=== PATIENT | male | born 1935 | race Caucasian/White ===

== ENCOUNTER → 2025-01-25 | Outpatient (CLI) | payer MEDICARE, SELFPAY ==
[2025-01-25 15:11] LABS: Hematocrit 35.2 % (40-54); Hemoglobin 12.4 g/dL (13.0-16.5); Mean Corp Hgb Conc 35.2 g/dL (32-36); Mean Corpuscular Hgb 31.1 pg (27.0-32.0); Mean Corpuscular Volume 88.2 fL (80-94); Mean Platelet Vol. 10.4 fl (6.2-12.0); Platelet Count 193 K/mm3 (150-450); RBC Distribution Width CV 14.4 % (11.6-14.6); RBC Distribution Width SD 46.5 fl (35.1-43.9); Red Blood Count 3.99 M/mm3 (4.6-6.2); White Blood Count 5.3 K/mm3 (4.4-11.0)
[2025-01-25 18:15] LABS: ALB/GLOB Ratio 1.5 RATIO (0.9-2.4); AST(SGOT) 15 U/L (<=37); Alanine Aminotransfer ALT/SGPT 13 U/L (<=46); Albumin, Serum 4.2 g/dL (3.4-4.8); Alkaline Phosphatase 79 U/L (40-129); Anion Gap 13 (5-15); BUN 46 mg/dL (4-19); BUN/Creat Ratio 22.1 RATIO (10-20); Calcium,Total 9.8 mg/dL (7.6-11.0); Carbon Dioxide 23.4 mmol/L (21.0-32.0); Chloride 101 mmol/L (98-108); Creatinine, Serum 2.06 mg/dL (0.70-1.20); EST Glomerular Filtration Rate 30 (>60); Globulin 2.7 g/dL (2.2-4.2); Glucose 171 mg/dL (70-99); Potassium 4.4 mmol/L (3.3-5.1); Protein, Total 6.9 g/dL (5.9-8.4); Sodium Level 137 mmol/L (133-145); Total Bilirubin 0.48 mg/dL (0.00-1.30); Vitamin B12 737 pg/mL (180-914)
[2025-02-01 14:08] LABS: Folate, RBC (Hct) Test 36.9 % (37.5-51.0); Folates, RBC Test 1642 ng/mL (>498); Free Kappa Light Chains 37.4 mg/L (3.3-19.4); Free Lambda Light Chains 28.9 mg/L (5.7-26.3)
== END | disposition home or self-care (01) ==
LOC: MTLAB 13:00
PROVIDERS: PCP Nurse Practitioner Family; Referring Provider Psychiatry & Neurology Neurology; Visit Provider Psychiatry & Neurology Neurology
DX: F03.90 Unspecified dementia, unspecified severity, without behavioral disturbance, psychotic disturbance, mood disturbance, and anxiety (principal); G62.9 Polyneuropathy, unspecified
CPT/HCPCS: 36415; 80053; 82607; 82747; 83883; 84425; 84443; 85014; 85027

== ENCOUNTER → 2025-05-24 | Outpatient (CLI) | payer MEDICARE, SELFPAY ==
[2025-05-24 16:00] LABS: Ferritin 558 ng/mL (37-417); Iron 74 ug/dL (65-175)
[2025-05-29 15:08] LABS: Albumin 3.7 g/dL (2.9-4.4); Gamma Globulin 0.9 g/dL (0.4-1.8); Immunoglobulin A 191 mg/dL (61-437); Immunoglobulin G 750 mg/dL (603-1613); Immunoglobulin M 63 mg/dL (15-143); PROEL- TOTAL PROTEIN 6.8 g/dL (6.0-8.5)
== END | disposition home or self-care (01) ==
LOC: MTLAB 12:37
PROVIDERS: PCP Nurse Practitioner Family; Referring Provider Psychiatry & Neurology Neurology; Visit Provider Psychiatry & Neurology Neurology
DX: D64.9 Anemia, unspecified (principal); G62.9 Polyneuropathy, unspecified
CPT/HCPCS: 36415; 82728; 82784; 83540; 84165; 86334; 86335